=== PATIENT | male | born 1960 | race Caucasian/White ===

== ENCOUNTER 2025-01-02 14:16 | Emergency (ER) | payer OTHER, SELFPAY ==
--- NOTE | ~2025-01-02 | XR_ITS ---
EXAMINATION: XR hand LT min 3V, 01/02/2025 14:58 CDT HISTORY: injury this am playing pickle ball on blood thinne, ring fin COMPARISON: No comparisons available. Findings: No acute fracture or malalignment. No significant degenerative changes. Soft tissues unremarkable. Impression: No acute fracture or malalignment. Reviewed, dictated and finalized at location P. Impression: No acute fracture or malalignment.
[2025-01-02 14:45] VITALS: BP 145/60; PULSE 45; RESP 16; TEMP 36.3; O2SAT 99
--- NOTE | 2025-01-02 15:27 | ED_ITS ---
HPI - Extremity Injury (Upper) General Chief Complaint: Extremity Injury, Upper Stated Complaint: left hand finger injury Time Seen by Provider: 01/02/25 15:00 Source: patient, RN notes reviewed and old records reviewed Mode of arrival: ambulatory Limitations: no limitations History of Present Illness HPI narrative: 64 year old male presents to express care with complaints of injury to his left hand and most discomfort to left ring finger from playing pickle ball this morning. Patient is on blood thinner of Plavix from insertion of cardiac stent on weekend. Patient has swelling to the left hand top of hand, ulna side of hand, left ring and 5th finger with bruising of area and discomfort, ice applied. Patient did remove his wedding ring after injury occurred. Patient has mobility of all fingers and hand but with pain, strong left radial pulse and brisk capillary refill of finger, denies any tingling or numbness of fingers or hand. MD complaint: injury to: left, hand and finger (specifically pain brusising and swelling of 4th and 5th fingers.) Onset (ago): day(s) (today this morning) Handedness: left Place: outdoors Severity scale (1-10): 8 Treatments prior to arrival: cold therapy Related Data Home Medications ?Medication ?Instructions ?Recorded ?Confirmed ?Last Taken ?Type amiodarone 200 mg tablet mg 01/02/25 Unknown History aspirin 81 mg tablet,delayed mg 01/02/25 Unknown Hist ory release atorvastatin 40 mg tablet mg 01/02/25 Unknown History carvedilol 3.125 mg tablet mg 01/02/25 Unknown Histor y clopidogrel 75 mg tablet mg 01/02/25 Unknown History empagliflozin 10 mg tablet mg 01/02/25 Unknown Histor y (Jardiance) escitalopram oxalate 20 mg tablet mg 01/02/25 Unknown History furosemide 40 mg tablet mg 01/02/25 Unknown History losartan 25 mg tablet mg 01/02/25 Unknown History metoprolol tartrate 25 mg tablet mg 01/02/25 Unknown History sacubitril 24 mg-valsartan 26 mg tablet 01/02/25 Unkn own History tablet spironolactone 25 mg tablet mg 01/02/25 Unknown Histo ry Allergies Allergy/AdvReac Type Severity Reaction Status Date / Time No Known Allergies Allergy Verified 01/02/25 14:49 Review of Systems Review of Systems: CONSTITUTIONAL: Denies fever, chills, or sweats. EYES: Denies visual changes, redness, or discharge. ENT: Denies rhinorrhea, congestion, sore throat, or otalgia. CARDIOVASCULAR: Denies chest pain, palpitations, or edema. RESPIRATORY: Denies cough or dyspnea. GASTROINTESTINAL: Denies abdominal pain, nausea, vomiting, or diarrhea. GENITOURINARY: Denies dysuria or hematuria. SKIN: Denies rash or itching. MUSCULOSKELETAL: Denies back pain, positive for pain bruising and swelling of left hand and 4th and 5th finger from injury, or myalgia. NEUROLOGIC: Denies headache, numbness, or weakness. PSYCHIATRIC: Denies anxiety or depression. All systems reviewed & are unremarkable except as noted in HPI and below PMFSH Past Medical History Medical History (Updated 01/03/25 @ 11:08 by Janet Caballero NP) Fractured patella bilateral Gout Elevated cholesterol Hypertension Heart disease Surgical History Surgical History (Updated 01/03/25 @ 10:54 by Janet Caballero NP) History of heart artery stent Social History Social History (Updated 01/03/25 @ 10:54 by Janet Caballero NP) Smoking status: Never smoker Alcohol intake: current Alcohol use details: social Substance use type: does not use Living arrangements: with family Gender identity (if verbalized by the patient): Male Comments At time of signature, agree with nursing past medical, surgical, social and family history. There is no relevant family history pertinent to the presenting complaint Exam Narrative: GENERAL: Well-appearing, well-nourished, and in some acute distress. HEAD: Normocephalic, atraumatic. EYES: PERRLA and EOMI. ENT: Nares clear, no rhinorrhea or epistaxis. Mucous membranes moist. NECK: Supple. no lymphadenopathy CHEST: Clear to auscultation. No respiratory distress. SAO2 99% on room air HEART: Regular rate and rhythm. No murmur heard. Normal peripheral pulses. ABDOMEN: Soft, nontender, nondistended, normal active bowel sounds. EXTREMITIES: Normal range of motion. No edema.Exception noted to left hand with bruising and swelling and reported pain mainly to left ring finger following injury playing pickle ball this morning, mobility is intact to left finger but with pain verbalized mainly to left ring finger, noted swelling and bruising to 4th and 5th fingers with bruising and swelling to the top and lateral aspect of left hand, strong radial pulse left wrist, nail beds mega briskly. Patient is left hand dominant. SKIN: Warm, dry, no rash. NEURO: No focal deficits. Alert and oriented x3. Course Course Emergency Course: Patient is aware of diagnosis, understands and agrees to treatment plan.? Anticipatory guidance given.? Patient agrees to follow-up as directed and is aware of reasons to seek care at the emergency department. Portions of this record may have been created with voice recognition software Level of Care: Express Care Visit Vital Signs Vital signs: Vital Signs Temperature 36.3 C L 01/02/25 14:45 Pulse Rate 45 L 01/02/25 14:45 Respiratory Rate 16 01/02/25 14:45 Blood Pressure 145/60 H 01/02/25 14:45 Pulse Oximetry 99 01/02/25 14:45 Temperature 36.3 C L 01/02/25 14:45 Pulse Rate 45 L 01/02/25 14:45 Respiratory Rate 16 01/02/25 14:45 Blood Pressure 145/60 H 01/02/25 14:45 Pulse Oximetry 99 01/02/25 14:45 reviewed MDM - Extremity Injury (Upper) Differential Diagnosis Differential diagnosis: Likely finger sprain, fracture of hand and other (contusion of left hand and fingers, finger fracture, pain left hand and fingers from injury) Medical Records Attestation: I reviewed the patient's medical records. Imaging Data Attestation: I personally reviewed and interpreted this imaging study as follows: My impression: no fracture noted per radiologist Radiologist's impression: [facility] [address] [place] [address] XRay Report Signed Patient: Diogenes Holden : 1960 MR#: [id number] Age: 64 Acct:[id number] Loc: [facility] ADM Date: 01/02/[address]: Ordering Physician: Janet Caballero APRN Date of Service: 01/02/25 Procedure(s): XR hand LT min 3V Accession Number(s): [id number] cc: Nima, Rojelio Wyatt MD; Janet Caballero APRN~ EXAMINATION: XR hand LT min 3V, 01/02/2025 14:58 CDT HISTORY: injury this am playing pickle ball on blood thinne, ring fin COMPARISON: No comparisons available. Findings: No acute fracture or malalignment. No significant degenerative changes. Soft tissues unremarkable. Impression: No acute fracture or malalignment. Reviewed, dictated and finalized at location P. Please be advised this is a medical document. It is intended for [id number] communication. It is written in medical language and may contain unfamiliar abbreviations or verbiage. Medical documents are intended to carry relevant information, facts as evident, and the clinical opinion of the practitioner at the time of the encounter. This report may have been done utilizing a voice recognition system. Attempts have been made to correct errors. However, there may be uncorrected grammatical, spelling, and recognition errors present. The file time of this note does not necessarily represent the time of service. Dictated By: Nhan Lozano MD 01/02/25 1506 Signed By: <Electronically signed by Nhan Lozano MD in OV> Critical Care Time Critical Care Time Critical Care Time: No Discharge Plan Discharge Clinical Impression: Contusion of hand, left Qualifiers: Encounter type: initial encounter Qualified Code(s): S60.222A - Contusion of left hand, initial encounter Contusion of finger without damage to nail Qualifiers: Encounter type: initial encounter Finger: ring finger Laterality: left Qualified Code(s): S60.042A - Contusion of left ring finger without damage to nail, initial encounter Patient Disposition: Home Condition: Stable Instructions: Antibiotic Form, Contusion in Adults (ED) Additional Instructions: Elastic wrap or orthopedic splint as directed for comfort for the next 5-7 days Tylenol for lesser pain arthritis strength 650 mg one tab every 6 hours Use the medication as provided for severe pain--caution each tablet contains 325 mg of Tylenol--the maximum dose of Tylenol is 4000 mg in 24 hours. This medication may cause constipation consider starting a laxative at this time Follow-up with orthopedic or hand surgeon if further concern or pain Follow-up with PCP if further problems or concerns Ice to the area 20-30 minutes 4-6 times a day Elevate above heart Follow-up with PCP if any further complaints of pain or swelling If your symptoms persist, change or worsen significantly before you can contact your personal physician then please, without delay, go to the emergency department for further evaluation. Follow-up with PCP in 7-10 days or sooner if needed Follow up with PCP soon in regards to your blood pressure which is elevated above threshold for referral. Blood pressure above 120/80 may indicate pre- hypertension.146/60 Patient Language: Chinese Prescriptions: New hydrocodone-acetaminophen 7.5-325 mg tablet 1 tablet PO Q6H PRN (Reason: pain) Qty: 10 0RF No Action furosemide 40 mg tablet atorvastatin 40 mg tablet amiodarone 200 mg tablet clopidogrel 75 mg tablet aspirin 81 mg tablet,delayed release (DR/EC) spironolactone 25 mg tablet carvedilol 3.125 mg tablet losartan 25 mg tablet escitalopram oxalate 20 mg tablet metoprolol tartrate 25 mg tablet Jardiance 10 mg tablet sacubitril-valsartan 24-26 mg tablet Follow-up/Referrals: Nima,Marky Wyatt MD [Primary Care Provider] Time of Disposition: 15:52 Quality [place] Coma Scale Eyes: Open Verbal: Oriented and Alert Motor: Follows Commands Wilfredo Coma Total Score: 15
== END 2025-01-02 15:57 | disposition home or self-care (01) ==
PROVIDERS: Emergency Provider Registered Nurse; PCP Internal Medicine
DX: S60.222A Contusion of left hand, initial encounter (principal); S60.042A Contusion of left ring finger without damage to nail, initial encounter; X58.XXXA Exposure to other specified factors, initial encounter; Y93.73 Activity, racquet and hand sports; I10 Essential (primary) hypertension; E78.00 Pure hypercholesterolemia, unspecified; M10.9 Gout, unspecified; I51.9 Heart disease, unspecified; Z95.5 Presence of coronary angioplasty implant and graft
CPT/HCPCS: 73130; 99213; G0463